=== PATIENT | female | born 1955 | race Hispanic/Latino ===

== ENCOUNTER 2022-09-02 13:44 | Observation (INO) | payer OTHER ==
[~2022-09-02] VITALS: Ht 160 cm; Wt 72.0 kg
[2022-09-02 16:55] LABS: MEAN CORPUSCULAR HEMOGLOBIN 29.2 pg (27.0-33.0); MEAN CORPUSCULAR HGB CONC 33.2 g/dL (32.0-36.0); MEAN CORPUSCULAR VOLUME 88.2 fL (79-99); PLATELET COUNT (AUTO) 254 K/uL (130-400); RED BLOOD CELL COUNT(AUTO) 4.31 MIL/uL (4.00-5.50); RED CELL DISTRIBUTION WIDTH 14.9 % (11.0-15.5); WHITE BLOOD COUNT (AUTO) 7.8 K/uL (4.8-10.8)
[2022-09-02 17:00] LABS: BASOPHILS % (AUTO) 0.4 % (0.0-5.0); EOSINOPHILS % (AUTO) 0.4 % (0.0-8.0); LYMPHOCYTES % (AUTO) 22.5 % (21.0-51.0); MONOCYTES % (AUTO) 6.8 % (3.0-13.0); NEUTROPHILS % (AUTO) 68.6 % (40.0-77.0)
[2022-09-02] MEDS ORDERED: DIPHENHYDRAMINE HCL 25 MG CAPSULE PO PRN (17:30)
[2022-09-02] MEDS ORDERED: NITROGLYCERIN 0.4 MG SL TAB SL PRN (17:30)
[2022-09-02] MEDS ORDERED: IPRATROPIUM 0.5 MG/2.5 ML INH IH PRN (17:30)
[2022-09-02] MEDS ORDERED: ONDANSETRON 4MG INJ IVP PRN (17:30)
[2022-09-02] MEDS ORDERED: CLONIDINE HCL 0.1 MG TABLET PO PRN (17:30)
[2022-09-02] MEDS ORDERED: LACTULOSE 20 GM/30 ML UDCUP PO PRN (17:30)
[2022-09-02] MEDS ORDERED: MAG/ALUM/SIMETH 30 ML UDCUP PO PRN (17:30)
[2022-09-02] MEDS ORDERED: ACETAMINOPHEN 325 MG TAB PO PRN (17:30)
[2022-09-02 17:34] LABS: ALBUMIN 3.5 g/dL (3.5-5.0); BILIRUBIN,DIRECT 0.1 mg/dL (0.0-0.3); CREATININE 0.5 mg/dL (0.5-1.5); POTASSIUM 4.2 mmol/L (3.5-5.1); TOTAL PROTEIN, SERUM 7.1 g/dL (6.0-8.3)
[2022-09-02 17:37] LABS: B-TYPE NATRIURETIC PEPTIDE 103 pg/mL (0-100)
[2022-09-02 20:21] LABS: APPEARANCE,URINE CLEAR (CLEAR); BILIRUBIN,URINE NEGATIVE (NEGATIVE); COLOR,URINE COLORLESS (YELLOW); GLUCOSE, URINE (UA) NEGATIVE (NEGATIVE); KETONES,URINE NEGATIVE (NEGATIVE); LEUKOCYTE ESTERASE ,URINE NEGATIVE Leu/uL (NEGATIVE); NITRATE,URINE NEGATIVE (NEGATIVE); OCCULT BLOOD,URINE NEGATIVE (NEGATIVE); PROTEIN,URINE NEGATIVE (NEGATIVE); UROBILINOGEN,URINE 0.2 mg/dL (0.2-1.0)
[2022-09-02 20:23] LABS: RBC,URINE 0-1 /HPF (0-1); SQUAMOUS EPITHELIAL CELL,UR RARE /HPF (0-2); WBC,URINE 0-1 /HPF (0-1)
[2022-09-02] MEDS ORDERED: ROSU20TA73 PO (20:53)
[2022-09-02] MEDS ORDERED: ACET325T51 PO (20:53)
[2022-09-02] MEDS ORDERED: MELO10CA3 PO (20:53)
[2022-09-02] MEDS ORDERED: [UNRECOGNIZED DRUG - CODE] PO (20:53)
[2022-09-02] MEDS ORDERED: LISI10TA24 PO (20:53)
[2022-09-02] MEDS ORDERED: OMEP40CA21 PO (20:53)
[2022-09-02] MEDS: GUAIFENESIN-DM 200/20 MG 10 ML PO PRN ×2 (21:00→22:10)
[2022-09-02] MEDS: FAMOTIDINE 20MG TAB PO SCH (22:15)
[2022-09-02] MEDS: ENOXAPARIN SODIUM 80 MG/0.8 ML SQ SCH (22:15)
[2022-09-02] MEDS: ATORVASTATIN 20 MG TABLET PO SCH (22:15)
[2022-09-02] MEDS: ZOLPIDEM TARTRATE 5 MG TAB PO SCH (22:15)
[2022-09-02] MEDS: IPRATROPIUM 0.5 MG/2.5 ML INH IH SCH (22:36)
[2022-09-03] VITALS: BP 146/83
[2022-09-03 04:00] VITALS: BP 127/74
[2022-09-03 05:21] LABS: BASOPHILS % (AUTO) 0.3 % (0.0-5.0); EOSINOPHILS % (AUTO) 0.6 % (0.0-8.0); HEMATOCRIT 34.9 % (36-48); LYMPHOCYTES % (AUTO) 24.9 % (21.0-51.0); MEAN CORPUSCULAR VOLUME 88.1 fL (79-99); MONOCYTES % (AUTO) 7.6 % (3.0-13.0); NEUTROPHILS % (AUTO) 65.7 % (40.0-77.0); PLATELET COUNT (AUTO) 247 K/uL (130-400); RED BLOOD CELL COUNT(AUTO) 3.96 MIL/uL (4.00-5.50); RED CELL DISTRIBUTION WIDTH 15.2 % (11.0-15.5); WHITE BLOOD COUNT (AUTO) 6.7 K/uL (4.8-10.8)
[2022-09-03 05:40] LABS: ALBUMIN 2.9 g/dL (3.5-5.0); BILIRUBIN,DIRECT 0.1 mg/dL (0.0-0.3); CREATININE 0.9 mg/dL (0.5-1.5); POTASSIUM 3.9 mmol/L (3.5-5.1); TOTAL PROTEIN, SERUM 6.2 g/dL (6.0-8.3)
[2022-09-03] MEDS: IPRATROPIUM 0.5 MG/2.5 ML INH IH SCH ×3 (06:24→23:02)
[2022-09-03] MEDS ORDERED: REGADENOSON 0.4 MG/5 ML PF SYG IVP SCH (07:00)
[2022-09-03] MEDS: PANTOPRAZOLE 40 MG TAB DR PO SCH (10:05)
[2022-09-03] MEDS: ASPIRIN 325MG TAB PO SCH (10:05)
[2022-09-03] MEDS: CLOPIDOGREL 75MG TAB PO SCH (10:05)
[2022-09-03] MEDS: FAMOTIDINE 20MG TAB PO SCH ×2 (10:05→20:00)
[2022-09-03] MEDS: ENOXAPARIN SODIUM 80 MG/0.8 ML SQ SCH ×2 (10:06→20:02)
[2022-09-03] MEDS ORDERED: ACETAMINOPHEN 325 MG TAB PO PRN (11:00)
[2022-09-03 12:00] VITALS: BP 133/77
[2022-09-03 16:00] VITALS: BP 131/78
[2022-09-03] MEDS: ZOLPIDEM TARTRATE 5 MG TAB PO SCH ×2 (19:59→20:03)
[2022-09-03] MEDS: ATORVASTATIN 20 MG TABLET PO SCH (19:59)
[2022-09-03 20:34] VITALS: BP 128/74
[2022-09-04 00:57] VITALS: BP 143/74
[2022-09-04 04:00] VITALS: BP 138/61
[2022-09-04] MEDS: IPRATROPIUM 0.5 MG/2.5 ML INH IH SCH (06:08)
[2022-09-04 07:59] VITALS: BP 139/90
[2022-09-04] MEDS: ENOXAPARIN SODIUM 80 MG/0.8 ML SQ SCH (09:00)
[2022-09-04] MEDS: FAMOTIDINE 20MG TAB PO SCH (09:00)
[2022-09-04] MEDS: PANTOPRAZOLE 40 MG TAB DR PO SCH (09:00)
[2022-09-04] MEDS: CLOPIDOGREL 75MG TAB PO SCH (09:48)
[2022-09-04] MEDS: ASPIRIN 325MG TAB PO SCH (09:48)
== END 2022-09-04 11:20 | disposition home or self-care (01) ==
LOC: EDH 14:57 → EDHIP 14:58 → UNDOADMOB 16:23 → EDHIP 16:23 → DIRECT 16:59 → EDHIP 16:59 → DIRECT 23:05 → 4DH 23:05
PROVIDERS: ADMIT Internal Medicine; ATTEND Internal Medicine
DX: I24.9 Acute ischemic heart disease, unspecified (principal); I44.7 Left bundle-branch block, unspecified; I10 Essential (primary) hypertension; J44.9 Chronic obstructive pulmonary disease, unspecified; E78.5 Hyperlipidemia, unspecified; Z79.899 Other long term (current) drug therapy
CPT/HCPCS: 96372 ×2; 99285; 82248; 82550 ×3; 83874 ×3; 84484 ×3; 80053; 83880; 85025 ×2; 81001; 36415 ×2; 71046; 93005; 94640 ×5; 94664; 80076; 80048; 93017; 78452; 93306; G0378 ×37; J1650 ×3; J2785; A9500 ×2; 96374

== ENCOUNTER → 2022-10-30 | Outpatient (CLI) | payer OTHER ==
[~2022-10-30] MED LIST: ACET325T51 PO; LISI10TA24 PO; MELO10CA3 PO; OMEP40CA21 PO; ROSU20TA73 PO; [UNRECOGNIZED DRUG - CODE] PO
[2022-10-30 14:36] LABS: CREATININE 0.7 mg/dL (0.5-1.5)
== END | disposition home or self-care (01) ==
LOC: LAB 13:56
PROVIDERS: ATTEND Internal Medicine
DX: J44.9 Chronic obstructive pulmonary disease, unspecified (principal)
CPT/HCPCS: 36415; 82565; 84520

== ENCOUNTER → 2022-11-04 | Outpatient (CLI) | payer OTHER ==
[~2022-11-04] MED LIST changes: +IOHEXOL-350 50ML VIAL IV ONE
== END | disposition home or self-care (01) ==
LOC: RAH 07:28
PROVIDERS: ATTEND Internal Medicine
DX: J44.9 Chronic obstructive pulmonary disease, unspecified (principal); M47.815 Spondylosis without myelopathy or radiculopathy, thoracolumbar region; K76.89 Other specified diseases of liver
CPT/HCPCS: 71260; Q9967

== ENCOUNTER → 2023-05-19 | Outpatient (CLI) | payer OTHER ==
[~2023-05-19] MED LIST changes: -IOHEXOL-350 50ML VIAL IV ONE
[2023-05-19 11:19] LABS: CREATININE 0.7 mg/dL (0.5-1.0)
== END | disposition home or self-care (01) ==
LOC: LAB 10:38
PROVIDERS: ATTEND Internal Medicine Gastroenterology
DX: R93.2 Abnormal findings on diagnostic imaging of liver and biliary tract (principal)
CPT/HCPCS: 36415; 82565; 84520

== ENCOUNTER → 2023-05-20 | Outpatient (CLI) | payer OTHER ==
[~2023-05-20] MED LIST changes: +IOHEXOL-350 75 ML VIAL IV ONE
== END | disposition home or self-care (01) ==
LOC: RAH 10:25
PROVIDERS: ATTEND Internal Medicine Gastroenterology
DX: K76.89 Other specified diseases of liver (principal); R93.2 Abnormal findings on diagnostic imaging of liver and biliary tract
CPT/HCPCS: 74170; Q9967

== ENCOUNTER → 2023-06-11 | Outpatient (CLI) | payer OTHER ==
[~2023-06-11] MED LIST changes: -IOHEXOL-350 75 ML VIAL IV ONE
== END | disposition home or self-care (01) ==
LOC: SHCH 14:01
PROVIDERS: ATTEND Internal Medicine Cardiovascular Disease
DX: I44.7 Left bundle-branch block, unspecified (principal); R94.39 Abnormal result of other cardiovascular function study; I10 Essential (primary) hypertension; E78.5 Hyperlipidemia, unspecified
CPT/HCPCS: 93306

== ENCOUNTER → 2024-04-15 | Outpatient (CLI) | payer OTHER ==
[~2024-04-15] MED LIST changes: +ACET-3859 PO; -ACET325T51 PO; +IOHEXOL 350 MG/ML 100ML INFUS..BTL IV ONE; -ROSU20TA73 PO; +ROSU20TA98 PO
--- NOTE | 2024-04-15 15:53 | HMCIMG ---
CT CARDIAC ANGIO W/CONT. CCTA REASON: CHEST PAIN COMPARISON: None TECHNIQUE: Images are obtained through the heart in the axial plane before and during bolus IV contrast infusion, 100 cc Omnipaque 350. 2-D and 3-D multiplanar reconstruction images were then performed. The injection had to be repeated once due to motion artifact on the first sequence, total contrast volume was 200 cc. FINDINGS: This dictation is for the noncardiac findings only. Cardiac and coronary artery findings are reported separately. Visualized portions of the lungs are clear. There is normal-appearing pulmonary interstitium. There is no hilar or mediastinal lymphadenopathy. Chest wall structures appear unremarkable. IMPRESSION: 1. Unremarkable noncardiac portions of CT cardiac angiography.
--- NOTE | 2024-04-22 13:04 | CARDIOLOGY ---
RAD REPORT: CORNARY CT ANGIO RADIOLOGY REPORT: CORONARY CT ANGIOGRAPHY DATE: Apr 22, 2024 QUALITY: Excellent CLINICAL HISTORY AND INDICATION: [ chest pain ] TECHNIQUE: After obtaining a preliminary corporate quality engineer image, contrast imaging performed on an [employer] [id number] scanner. A dedicated, limited window, coronary imaging protocol was used, with single breath-hold, retrospective ECG gating, and automated arrhythmia rejection. 100 cc of low osmolar contrast agent: Omnipaque 350 was delivered via a 18-gauge IV catheter in the right antecubital fossa, using a power injector and followed by 60 cc of normal saline bolus as a chaser. Collimated images were reformatted at 0.5 mm intervals, and sent to an offline independent workstation for interpretation, using 3D anatomic reconstructions: Curved multiplanar reconstructions, maximum intensity projections, and multiplanar imaging. No metoprolol was administered prior to scanning due to low baseline heart rate. 0.4 mg SL nitroglycerin was given. CORONARY ARTERY DESCRIPTIONS: The coronary arteries arise in normal position. Left main coronary artery: Normal caliber vessel that bifurcates into the LAD and LCx. No stenosis. Left anterior descending coronary artery: Normal caliber vessel and gives rise to diagonal and septal branches. No stenosis. Left circumflex coronary artery: Normal caliber, nondominant and gives rise to a large OM branch. No stenosis. Right coronary artery: Large, dominant vessel giving rise to the PL and PDA branches. No stenosis. CAD-RADs: 0, absence of CAD. Thoracic Aorta: Normal diameter. Laura Mims MD Cardiovascular Disease [facility] LAURA MIMS MD Apr 22, 2024 13:04
== END | disposition home or self-care (01) ==
LOC: RAH 13:35
PROVIDERS: ATTEND Internal Medicine Cardiovascular Disease
DX: R07.9 Chest pain, unspecified (principal); I44.7 Left bundle-branch block, unspecified
CPT/HCPCS: 75574; Q9967

== ENCOUNTER → 2025-02-10 | Outpatient (CLI) | payer OTHER ==
[~2025-02-10] MED LIST changes: -IOHEXOL 350 MG/ML 100ML INFUS..BTL IV ONE; +IOHEXOL-350 50ML VIAL IV ONE
--- NOTE | 2025-02-10 22:30 | HMCIMG ---
EXAM: CT Chest with Intravenous Contrast. CLINICAL HISTORY: CHRONIC OBSTRUCTIVE PULMONARY DISEASE. TECHNIQUE: Axial computed tomography images of the chest with intravenous contrast. CONTRAST: With intravenous contrast. COMPARISON: None provided. FINDINGS: LUNGS: Mild periosteophyte atelectatic changes in the medial basal segment of the right lower lobe. Mild atelectatic changes in the inferior lingula. The rest of the lungs are clear. No pulmonary mass, emphysema, or consolidation. PLEURAL SPACES: No pneumothorax evident. No pleural effusions. HEART: No cardiomegaly. No significant pericardial effusion. LYMPH NODES: No lymphadenopathy is evident. BONES: No focal osseous abnormality or acute fracture. Multilevel degenerative changes in the thoracic spine. CHEST WALL AND UPPER ABDOMEN: Two simple cysts in the right lobe of the liver largest measuring 3.1 x 2.3 cm, with an average Hounsfield units value of 8. The rest of the upper abdominal solid organs are unremarkable. The chest wall is unremarkable. IMPRESSION: 1. No acute intrathoracic findings. 2. Mild periosteophyte atelectatic changes in the medial basal segment of the right lower lobe. Mild atelectatic changes in the inferior lingula. 3. Two simple cysts in the right lobe of the liver. /[place]
== END ==
LOC: RAH 10:30
PROVIDERS: ATTEND Internal Medicine
DX: J44.9 Chronic obstructive pulmonary disease, unspecified (principal); J98.11 Atelectasis; K76.89 Other specified diseases of liver
CPT/HCPCS: 71260; Q9967